=== PATIENT | male | born 1950 | race Caucasian/White ===

== ENCOUNTER → 2016-04-21 | Outpatient (CLI) | payer OTHER ==
[~2016-04-21] MED LIST: ASA325 MG PO; CELEBREX200 MG PO; FLOMAX DPS0.4 MG PO; METAMUCIL SF P3.4 GM PO; MIRALAX PACKET17 GM PO; NORVASC5 MG PO; OXY IR DPS5 MG PO; PROTONIX40 MG PO; ROCEPHIN DPS2 GM IV; SENOKOT S1 TAB PO; TYLENOL DPS325 MG PO; ULTRAM DPS50 MG PO; ZOCOR DPS20 MG PO
== END | disposition home or self-care (01) ==
LOC: RAD.S 08:54
DX: K76.89 Other specified diseases of liver (principal); R93.2 Abnormal findings on diagnostic imaging of liver and biliary tract